=== PATIENT | female | born 1940 | race Caucasian/White ===

== ENCOUNTER 2016-05-05 01:54 | Inpatient (IN) | payer OTHER ==
[2016-05-05] MEDS ORDERED: Sodium Chloride 0.9% 1,000 ML PRIMARY IV ONE (02:16)
[2016-05-05] MEDS ORDERED: NORMAL SALINE 10 ML SYRINGE FLUSH IVP PRN ×2 (02:16→04:19)
[2016-05-05] MEDS ORDERED: DEXAMETHASONE PF 10 MG/1 ML VIAL IVP ONE (02:21)
[2016-05-05 02:44] LABS: BASOPHILS # (AUTO) 0.09 10*3/UL; BASOPHILS % (AUTO) 0.8 % (0-1); EOSINOPHILS % (AUTO) 2.5 % (0-8); HEMATOCRIT 33.1 % (37.0-47.0); HEMOGLOBIN 10.9 g/dL (12.0-16.0); IMM GRAN % (AUTO) 2.8 % (0-5); IMM GRAN# (AUTO) 0.32 10*3/UL; LYMPHOCYTES # (AUTO) 4.13 10*3/uL; LYMPHOCYTES % (AUTO) 36.4 % (10-50); MEAN CORPUSCULAR HEMOGLOBIN 32.1 PG (27-31); MEAN CORPUSCULAR HGB CONC 32.9 g/dL (33-37); MEAN PLATELET VOLUME 9.9 FL (7.4-12.2); MONOCYTES # (AUTO) 1.36 10*3/UL (0.3-0.8); NEUTROPHILS # (AUTO) 5.16 10*3/UL; NEUTROPHILS % (AUTO) 45.5 % (50-80); RDW COEFFICIENT OF VARIATION 13.6 % (11.5-14.5); WHITE BLOOD COUNT 11.34 10^3/uL (4.8-10.8)
[2016-05-05 02:46] LABS: PLATELET MORPHOLOGY COMMENT NORMAL MORPHOLOGY (NORM)
[2016-05-05 02:51] LABS: BILIRUBIN,TOTAL 0.6 mg/dL (0.3-1.2); BUN/CREATININE RATIO 36.25 (6-20); C-REACTIVE PROTEIN 0.6 mg/dL (0.0-0.9); CALCIUM 9.1 mg/dL (8.7-10.7); CREATININE 0.8 mg/dL (0.50-1.20); LACTATE 1.1 MMOL/L (0.70-2.10); POTASSIUM 4.5 meq/L (3.8-5.2); TOTAL PROTEIN 7.3 g/dL (6.1-8.0)
--- NOTE | 2016-05-05 03:10 | PDOC ---
Upper Respiratory HPI - General Chief Complaint: Respiratory Complaint Stated Complaint: WHEEZING, COUGH AND SORE THROAT X FEW DAYS Date Seen by Provider: 05/05/16 Time Seen by Provider: 01:55 Source: POSITIVE: Patient, EMS, [facility] records Exam Limitations: POSITIVE: No limitations Nurse's Notes Reviewed & Considered: Yes EMS Report Reviewed & Considered: Verbal - History of Present Illness Initial Comments: The patient is a 76-year-old female who presents to the emergency department with cough and increased shortness of breath as well as sore throat. She reports that over the past 2-3 days she has had a sore throat associated with cough. She states that all day today she has felt like there is something in her throat that she was unable to cough out. [facility] and received several nebulizer treatments. EMS was subsequently called because of her increased difficulty breathing. Oxygen saturations have remained 92% or greater on room air [facility] the [facility]. Just prior to EMS arriving there she coughed up a large hard mucous plug. She states after doing this her breathing feels better. She does continue to have sore throat. She states she has pain with swallowing and has a hoarse voice over the past 24 hours. She denies fevers or chills, chest pain , pain or swelling in her extremities or any other associated complaints. - Patient Home Medications Home Medications: Home Medications Blood Sugar Diagnostic [Freestyle Lite Strips] 1 each IN QID #100 strip Cholecalciferol (Vitamin D3) [Vitamin D3] 1 cap PO QD #90 cap 11/14/13 Folic Acid 5 tab ORAL QD #150 tab 10/26/14 Lancets [Bd Ultra-Fine] 1 each QHS #100 each 04/30/15 Losartan Potassium 1 tab ORAL QD #90 tab 04/30/15 [place], Insulin Disposable [Pen [place]] 1 each QD #100 unit 04/30/15 Propranolol HCl [Propranolol HCl ER] 1 cap PO QD #30 cap 06/05/15 Levothyroxine Sodium 1 tab PO DAILY #90 tab 08/14/15 Triamcinolone Acetonide 15 gm TP QID PRN #1 tube 08/27/15 Citalopram Hydrobromide [Celexa] 1 tab ORAL QD #30 tab 09/17/15 Lorazepam 1 mg PO BID #60 tab 11/28/15 Allopurinol 0.5 tab PO QD #45 tab 01/29/16 Insulin Glargine Inj [Lantus Inj] 60 unit SUBCUT QAM 03/28/16 Insulin Glargine SoloStar Inj [Lantus Solostar Inj] 55 unit SQ QPM #100 ml 03/28 Tramadol HCl 1 tab PO Q6H PRN #60 tab 03/28/16 Lorazepam 1 tab PO QHS tab 04/08/16 Polyethylene Glycol 400/Pva [Hypotears Eye Drops] 1 drp OP BID drp 04/16/16 Insulin Lispro [Humalog] 100 unit SUBCUT AC each 04/28/16 - Patient Allergies Allergies/Adverse Reactions: Allergies Allergy/AdvReac Type Severity Reaction Status Date / Time Penicillins Allergy Intermediate NAUSEA Verified 05/05/16 02:05 meperidine HCl [From Demerol] AdvReac Intermediate NAUSEA Verified 05/05/16 02: 05 nalbuphine HCl [From Nubain] AdvReac Mild NAUSEA Verified 05/05/16 02:05 CONTRAST DYE Allergy Intermediate NAUSEA Uncoded 05/05/16 02:05 Past Medical History - heen HEENT History: Cataracts, Dentures/Partials Additional HEENT History: BILAT CATARACT SURGERY 1 YEAR AGO Cardiovascular History: Hypertension, Hyperlipidemia Additional Cardiovasular History: HX OF CARDIAC STRESS TEST NEGATIVE Respiratory History: COPD, Shortness of Breath, Home Oxygen Use Additional Respiratory History: RESTRICTIVE LUNG DISEASE/ 2L O2 AT HS Gastrointestinal History: GERD, Hiatal Hernia Additional Gastrointestinal History: DIFFICULTY SWALLOWING FOOD Genitourinary History: Denies History Endocrine History: Type 2 Diabetes (insulin), Hypothyroidism Musculoskeletal History: Arthritis, Gout, Osteoarthritis Prosthesis or Implant: No Additional Musculoskeletal History: COMPRESSION FRACTURE Neurological History: Frequent Headaches Additional Neurological History: CHRONIC DIZZINESS; RECURRENT HEADACHE; head CTs in the past 2 yrs have twice revealed small vessel disease and 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 Blood Disorders: Other (please comment) Additional Blood Disorders History: B12 DEFICIENCY WITHOUT ANEMIA Psychiatric History: Anixety Disorders History of Sexually Transmitted Diseases: No Female Reproductive History: Denies History Obstetrical History: Denies History Cancer History: Denies History In Past Year Been Physically Harmed or Verbally Threatened: No History of MDRO: No History of Other Communicable Diseases: No Tobacco Use: Never Smoker Alcohol Use: None Substance Use Type: None Previous Surgical History: Yes Type / Date of Surgery: APPY/ BILAT OOPHORECTOMY/ BLADDER SX X 2/ B CATARACT EXT / COLONOSCOPY/ EGD/ HYST/ UMBILICAL HERNIA/EXP LAPAROTOMY WITH LYSIS OF ADHESIONS X 2/ D&C/ OVARIAN CYST EXC Anesthesia Reactions: Yes (OCCASIONAL PONV) Malignant Hyperthermia: No Significant Family History: Diabetes Additional Family History: both mother and father had DM Past Medical History Reviewed: Reviewed - No Changes ROS - Limitations ROS Limitations: No Limitations Constitution: DENIES: Chills, Fever Cardiovascular: DENIES: Chest Pain Respiratory: REPORTS: Cough Non Productive, Cough Productive, Shortness Of Breath Neurological: REPORTS: Denies Neuro Symptoms Gastrointestinal: REPORTS: Denies GI Symptoms Musculoskeletal: REPORTS: Denies MS Symptoms Eyes: REPORTS: Denies Symptoms ENT: REPORTS: Denies Symptoms Skin: DENIES: Rash Upper Respiratory/Fever Exam - General Appearance General Appearance: REPORTS: Alert, Cooperative, No Acute Distress - HEENT HEENT: POSITIVE: Head Inspection Nml, Eyes Inspection Nml, Ears Inspection Nml, Pharynx Inspect. Nml - Neck Neck: REPORTS: Normal Inspection, Other (No visible swelling and trachea is midline) - Respiratory Respiratory: REPORTS: No Respiratory Distress, Breath Sounds Normal, Speaks Full Sentences - Abdomen Abdomen: Soft: (All Quadrants), Denies Tenderness: (All Quadrants), No Distention: (All Quadrants) - Cardiovascular Cardiovascular: REPORTS: Regular Rate and Rhythm, Heart Sounds Normal - Skin Skin: REPORTS: Intact, No Rash - Extremities Extremity: Normal ROM: (All Extremities), Normal Inspection: (All Extremities) - Neurological / Psychological Neurological: POSITIVE: Oriented X3, Motor Normal, Sensation Normal Upper Resp/Fever Progress - Results Reviewed by me Xrays/CTs/US Reviewed by me: Yes Discussed with Radiologist: Yes Radiology Findings: Chest x-ray shows by Negra patchy infiltrates consistent with early pneumonia per radiologist. CT soft tissue neck without IV contrast revealed no obvious abnormal swelling or fluid accumulation/abscess per radiologist. She did have some inflammation in the sinuses. Lab Results Reviewed: Yes Lab Results:: Laboratory Results 05/05/16 Range/Units 02:36 WBC 11.34 H (4.8-10.8) 10^3/uL RBC 3.40 L (4.20-5.40) 10^6/uL Hgb 10.9 L (12.0-16.0) g/dL Hct 33.1 L (37.0-47.0) % MCV 97.4 (81-99) FL MCH 32.1 H (27-31) PG MCHC 32.9 L (33-37) g/dL RDW Std Deviation 46.6 (39-50) fL RDW Coeff of Ryan 13.6 (11.5-14.5) % Plt Count 396 H (140-350) 10*3/uL MPV 9.9 (7.4-12.2) FL Immature Gran % (Auto) 2.8 (0-5) % Neut % (Auto) 45.5 L (50-80) % Lymph % (Auto) 36.4 (10-50) % [place] % (Auto) 12.0 (5-15) % Eos % (Auto) 2.5 (0-8) % Baso % (Auto) 0.8 (0-1) % Immature Gran # (Auto) 0.32 10*3/UL Neut # (Auto) 5.16 10*3/UL Lymph # (Auto) 4.13 10*3/uL [place] # (Auto) 1.36 H (0.3-0.8) 10*3/UL Eos # (Auto) 0.28 10*3/UL Baso # (Auto) 0.09 10*3/UL WBC Morphology Comment Normal morphology (NORM) Plt Morphology Comment Normal morphology (NORM) RBC Morph Comment Normal morphology (NORM) Sodium 134 L (135-145) meq/L Potassium 4.5 (3.8-5.2) meq/L Chloride 99 (98-112) meq/L Carbon Dioxide 25 (23-33) meq/L Anion Gap 10 (5-20) BUN 29 H (7-22) mg/dL Creatinine 0.8 (0.50-1.20) mg/dL Estimated GFR (>60 ml/min/1.73m(2)) BUN/Creatinine Ratio 36.25 H (6-20) Glucose 120 H (78-110) mg/dL Calculated Osmolality 284.0 (267-292) mOsm/kg Lactic Acid 1.1 (0.70-2.10) MMOL/L Calcium 9.1 (8.7-10.7) mg/dL Total Bilirubin 0.6 (0.3-1.2) mg/dL AST 24 (8-39) IU/L ALT 32 (9-52) IU/L Alkaline Phosphatase 90 (38-126) IU/L C-Reactive Protein 0.6 (0.0-0.9) mg/dL Total Protein 7.3 (6.1-8.0) g/dL Albumin 3.7 (3.5-4.8) g/dL Globulin 3.5 (2.50-4.10) g/dL Albumin/Globulin Ratio 1.00 L (1.3-2.0) mg/g - Patient's Progress MDM / ED Course: Blood cultures and lactate were drawn with IV start. The patient did receive Decadron [address] soft tissue neck and chest x-ray were obtained. The patient's oxygen saturations did drop into the low 80s and she was placed on oxygen per nasal cannula. The CT soft tissue neck did not reveal any evidence of soft tissue swelling or abscess. Chest x-ray shows early infiltrates consistent with early pneumonia. Swabs were sent for influenza. Blood work reveals mildly elevated white blood cell count. Lactate levels were normal. The patient is discussed with Dr. Arias. He is agreed to admit the patient for treatment of pneumonia. She will be started on Zosyn. Findings were discussed with the patient and her daughter and they are in agreement with the current plan. - Consult Counseled: POSITIVE: Patient, Family, RE: Lab Results, RE: Radiology Results, RE : DX, RE: Need for F/U Patient Care Time - Estimated PCT Patient Care Time (In Minutes): 30 Vital Signs - Recent Vital Signs Vital Signs: Vital Signs (Last 8 hours) Temp Pulse Resp BP Pulse Ox 05/05/16 01:54 98.2 F 77 22 154/83 95 - VS Reviewed Vital Signs Reviewed: Yes Discharge Clinical Impression: Pneumonia, Laryngitis Discharge Disposition: Admit to Inpatient Condition: Fair Date Decision to Admit to Inpatient: 05/05/16 Time Decision to Admit to Inpatient: 03:30
--- NOTE | 2016-05-05 03:12 | DI ---
HISTORY: Patient states she has had a cold x2 weeks with difficulty breathing and swallowing x2 days . TECHNIQUE: Contiguous axial images of the neck were obtained and submitted for interpretation. FINDINGS: Mucosal surfaces are smooth and symmetric. There is no formed fluid collection to suggest abscess formation, though evaluation is significantly limited in the absence of intravenous contrast. No cervical lymphadenopathy. There is mucosal thickening and frothy secretions in the bilateral maxillary sinuses. Mucosal thicken ing of the ethmoid air cells is also noted. The mastoid air cells are clear. Captured intracranial contents are notable for age related senescent changes without acute intracrani al pathology. There are postsurgical changes of the bilateral globes. Imaged portions of the orbits and facial soft tissues are otherwise unremarkable. The lung apices are clear. There is a calcified mediastinal lymph node. The thyroid gland exhibits normal CT morphology. Vascular structures are intact. Atheromatous calcifications are noted in the left carotid bulb. Osseous structures are notable for degenerative changes of the spine without acute osseous abnormalit y. There is multilevel degenerative disc disease with prominent posterior endplate osteophytes result ing in osseous central canal narrowing at the C4/5 level. IMPRESSION: 1. No CT evidence of acute neck pathology within the limits of this exam. 2. Acute on chronic sinus disease. 3. Age related intracranial senescent changes without CT evidence of acute pathology.
--- NOTE | 2016-05-05 03:16 | DI ---
HISTORY: Patient states she has had a cold x2 weeks with difficulty swallowing and breathing x2 days . TECHNIQUE: PA and lateral views of the chest are submitted. Patchy bibasilar and left retrocardiac opacities may. There is no pleural effusion or pneumothorax. The cardiomediastinal silhouette is within normal limits with atheromatous calcifications in the arch of the tortuous aorta. Degenerative changes of the right AC joint and spine are noted. Surgical clips project over the righ t upper quadrant. IMPRESSION: 1. Patchy bibasilar and left retrocardiac atelectasis versus early consolidation. Follow-up to reso lution is recommended.
[2016-05-05] MEDS ORDERED: Piperacillin/Tazobactam Inj 3.375 GM in Sodium Chloride 0.9% 100 ML IV ONE (03:29)
[2016-05-05] MEDS ORDERED: Insulin Lispro Flexpen 300 UNIT/3 ML INSULN.PEN SUBCUT ONE (04:19)
[2016-05-05] MEDS ORDERED: ONDANSETRON 4 MG/2 ML VIAL IVP PRN (04:19)
[2016-05-05] MEDS ORDERED: Levofloxacin 750mg (Premix) 750 MG in Dextrose 1 BAG IV SCH (05:00)
[2016-05-05] MEDS: Levofloxacin 750mg (Premix) 750 MG in Dextrose 1 BAG IV SCH (05:38)
[2016-05-05] MEDS: LEVOTHYROXINE 125 MCG TABLET PO SCH (06:20)
[2016-05-05] MEDS: ACETAMINOPHEN 325 MG TABLET PO PRN ×3 (07:25→21:00)
[2016-05-05] MEDS: Insulin Lispro Flexpen 300 UNIT/3 ML INSULN.PEN SUBCUT SCH ×3 (07:26→16:00)
[2016-05-05] MEDS: FOLIC ACID 1 MG TABLET PO SCH (08:20)
[2016-05-05] MEDS: PROPRANOLOL ER 60 MG CAPSULE PO SCH (08:20)
[2016-05-05] MEDS: ALLOPURINOL 300 MG TABLET PO SCH (08:20)
[2016-05-05] MEDS: LOSARTAN 50 MG TABLET PO SCH (08:20)
[2016-05-05] MEDS ORDERED: Piperacillin/Tazobactam Inj 3.375 GM in Sodium Chloride 0.9% 100 ML IV SCH (10:00)
[2016-05-05] MEDS ORDERED: Sodium Chloride 0.9% 100 ML IV ONE (10:10)
[2016-05-05] MEDS: Insulin Glargine SoloStar Inj 100 UNIT/ML INSULN.PEN SUBCUT SCH (11:19)
[2016-05-05] MEDS ORDERED: traMADol 50 MG TABLET PO PRN (12:52)
[2016-05-05] MEDS ORDERED: LORazepam 1 MG TABLET PO SCH (13:00)
[2016-05-05] MEDS ORDERED: INSULIN GLARGINE 60 UNIT SUBCUT SCH (13:00)
[2016-05-05] MEDS: LORazepam 1 MG TABLET PO SCH ×2 (13:04→21:00)
--- NOTE | 2016-05-05 18:58 | PDOC ---
History and Physical - History of Present Illness Date and Time of Service: 05/05/2015, 1850 Chief Complaint: Patient seen and evaluated earlier today. Cough is the patient 's chief complaint. History of Present Illness: This is a very pleasant 76-year-old female who resides at [facility]. She states that about a week ago or so she developed some cold symptoms. She was on some cough syrup but over the last couple days has had a more productive cough and apparently coughed up a large amount of phlegm last night and early in the morning. She is not had any fever or chills, she did get the flu shot and the pneumonia vaccine this year. She states that she lost her voice about 2 days ago. The productive portion of the cough is been much more severe the last 2 days. She was sent over for evaluation and it appears that she may have a lingular infiltrate. She was placed on Rocephin and Zosyn and was admitted. She is requiring some oxygen here in the hospital and normally is on room air. Overall she does feel better with antibiotics and oxygen therapy. Past Medical History Medical History: 1. Hyperlipidemia. 2. hypertension, she had a stress test and that's done in the past which was negative. 3. Restrictive lung disease but apparently not on any oxygen any longer. Was on 2 L of oxygen prior to going in to [facility]. 4. GERD. 5. hypothyroidism. 6. Arthritis. 7.gout. 8. history of compression fracture,. 9. chronic dizziness recurrent headaches, head CTs in the last 2 years revealed small vessel disease. 10. B12 deficiency. 11. Diabetes mellitus, insulin-dependent Surgical History: 1) Appendectomy. 2) bladder suspension x2. 3) bilateral cataract extraction. 4) colonoscopy. 5) EGD with dilation. 6) vaginal hysterectomy with bilateral salpingo-oophorectomy. 7) umbilical hernia repair. 8) exploratory laparotomy with lysis of adhesions x2 (1 when quite young). 9 ) D&C. 10) ovarian cyst excision for torsion. 11) lipoma excision recently. Pertinent Family History: Family history significant for diabetes both mother and father had diabetes Past Social History: Does not smoke or drink. Resides currently at [facility]. Tobacco Use: Never Smoker Substance Use Type: None Medication / Allergies Home Medications: Home Medications Medication Instructions Recorded Confirmed Type Blood Sugar Diagnostic [Freestyle 1 each IN QID #100 strip 10/06/13 05/05/16 Clinic Lite Strips] Cholecalciferol (Vitamin D3) 1 cap PO QD #90 cap 11/14/13 05/05/16 Clinic [Vitamin D3] Folic Acid 5 tab ORAL QD #150 tab 10/26/14 05/05/16 Clinic Lancets [Bd Ultra-Fine] 1 each MC QHS #100 each 04/30/15 05/05/16 Clinic Losartan Potassium 1 tab ORAL QD #90 tab 04/30/15 05/05/16 Clinic [place], Insulin Disposable [Pen 1 each QD #100 unit 04/30/15 05/05/16 [facility] [place]] Propranolol HCl [Propranolol HCl 1 cap PO QD #30 cap 06/05/15 05/05/16 Clinic ER] Levothyroxine Sodium 1 tab PO DAILY #90 tab 08/14/15 05/05/16 Clinic Triamcinolone Acetonide 15 gm TP QID PRN #1 tube 08/27/15 05/05/16 Clinic Citalopram Hydrobromide [Celexa] 1 tab ORAL QD #30 tab 09/17/15 05/05/16 Clinic Lorazepam 1 mg PO BID #60 tab 11/28/15 05/05/16 Clinic Allopurinol 0.5 tab PO QD #45 tab 01/29/16 05/05/16 Clinic Insulin Glargine Inj [Lantus Inj] 60 unit SUBCUT QAM 03/28/16 05/05/16 History Insulin Glargine SoloStar Inj 55 unit SQ QPM #100 ml 03/28/16 05/05/16 Clinic [Lantus Solostar Inj] Tramadol HCl 1 tab PO Q6H PRN #60 tab 03/28/16 05/05/16 Clinic Lorazepam 1 tab PO QHS tab 04/08/16 05/05/16 History Polyethylene Glycol 400/Pva 1 drp OP BID drp 04/16/16 05/05/16 History [Hypotears Eye Drops] Insulin Lispro [Humalog] 100 unit SUBCUT AC each 04/28/16 05/05/16 History Allergies/Adverse Reactions: Allergies Allergy/AdvReac Type Severity Reaction Status Date / Time Penicillins Allergy Intermediate NAUSEA Verified 05/05/16 09:35 meperidine HCl [From Demerol] AdvReac Intermediate NAUSEA Verified 05/05/16 09: 35 nalbuphine HCl [From Nubain] AdvReac Mild NAUSEA Verified 05/05/16 09:35 CONTRAST DYE Allergy Intermediate NAUSEA Uncoded 05/05/16 09:35 Review of Systems - Review of Systems All Systems: Reviewed & No Additional Complaints Except as Stated (I did a 12 point review systems and it was negative other than that noted below.) - Musculoskeletal Musculoskeletal: REPORTS: Joint Pain - Shoulders (Particularly the left shoulder ) - Neurological Neurologic: REPORTS: Headache (Chronic in nature) Exam - Vitals Vital Signs: Vital Signs Temperature 97.9 F Temperature Source Temporal Artery Scan Pulse Rate [Apical] 75 Pulse Rate [Pulse Oximeter] 82 Pulse Rate 73 Respiratory Rate 24 Blood Pressure [Right Arm] 164/65 Blood Pressure 156/71 Pulse Ox 93 Oxygen Flow Rate 1 Oxygen Delivery Method Nasal Cannula Height 4 ft 10 in Weight 134 lb 12.8 oz - General General Appearance: POSITIVE: No Acute Distress, Cooperative - Head Head Exam: POSITIVE: Normal Inspection, Normocephalic, Atraumatic - Eye Eye Exam: POSITIVE: No Scleral Icterus - ENT ENT Exam: POSITIVE: Mucous Membranes Moist - Neck Neck Exam: POSITIVE: Normal Inspection, No Tenderness, No Thyromegaly - Respiratory Respiratory Exam: POSITIVE: Breathing Non Labored, Normal to Percussion and Palpation, Decreased Breath Sounds (In the bases, right side greater than left.) - Cardiovascular Cardiovascular Exam: POSITIVE: RRR, No Murmur, No Clicks, No Gallops, No Rubs, No JVD - GI/Abdominal GI/Abdominal Exam: POSITIVE: Normal Bowel Sounds, Non Tender, Non Distended, Soft - Rectal Rectal Exam: POSITIVE: Deferred - External Exam: POSITIVE: Deferred Exam: POSITIVE: Deferred - Extremities Extremities Exam: POSITIVE: No Clubbing Present, No Edema Present, No Cyanosis Present - Back Back Exam: POSITIVE: No CVA Tenderness - Neurological Neurological Exam: POSITIVE: Alert, Oriented x 3, No Facial Droop, Speech Intact / Clear, Moves All Extremities Equally - Psychiatric Psychiatric Exam: POSITIVE: Normal Affect, Normal Mood - Integumentary Integumentary Exam: POSITIVE: Normal Color, Warm, Dry, Intact - Central Line Examination Central Line Present on Admission: No Results - Labs CBC and BMP: 05/05/16 02:36 05/05/16 02:36 Labs - Last 24 Hours: Laboratory Results 05/05/16 Range/Units 02:36 WBC 11.34 H (4.8-10.8) 10^3/uL RBC 3.40 L (4.20-5.40) 10^6/uL Hgb 10.9 L (12.0-16.0) g/dL Hct 33.1 L (37.0-47.0) % MCV 97.4 (81-99) FL MCH 32.1 H (27-31) PG MCHC 32.9 L (33-37) g/dL RDW Std Deviation 46.6 (39-50) fL RDW Coeff of Ryan 13.6 (11.5-14.5) % Plt Count 396 H (140-350) 10*3/uL MPV 9.9 (7.4-12.2) FL Immature Gran % (Auto) 2.8 (0-5) % Neut % (Auto) 45.5 L (50-80) % Lymph % (Auto) 36.4 (10-50) % [place] % (Auto) 12.0 (5-15) % Eos % (Auto) 2.5 (0-8) % Baso % (Auto) 0.8 (0-1) % Immature Gran # (Auto) 0.32 10*3/UL Neut # (Auto) 5.16 10*3/UL Lymph # (Auto) 4.13 10*3/uL [place] # (Auto) 1.36 H (0.3-0.8) 10*3/UL Eos # (Auto) 0.28 10*3/UL Baso # (Auto) 0.09 10*3/UL WBC Morphology Comment Normal morphology (NORM) Plt Morphology Comment Normal morphology (NORM) RBC Morph Comment Normal morphology (NORM) Sodium 134 L (135-145) meq/L Potassium 4.5 (3.8-5.2) meq/L Chloride 99 (98-112) meq/L Carbon Dioxide 25 (23-33) meq/L Anion Gap 10 (5-20) BUN 29 H (7-22) mg/dL Creatinine 0.8 (0.50-1.20) mg/dL Estimated GFR (>60 ml/min/1.73m(2)) BUN/Creatinine Ratio 36.25 H (6-20) Glucose 120 H (78-110) mg/dL Calculated Osmolality 284.0 (267-292) mOsm/kg Lactic Acid 1.1 (0.70-2.10) MMOL/L Calcium 9.1 (8.7-10.7) mg/dL Total Bilirubin 0.6 (0.3-1.2) mg/dL AST 24 (8-39) IU/L ALT 32 (9-52) IU/L Alkaline Phosphatase 90 (38-126) IU/L C-Reactive Protein 0.6 (0.0-0.9) mg/dL Total Protein 7.3 (6.1-8.0) g/dL Albumin 3.7 (3.5-4.8) g/dL Globulin 3.5 (2.50-4.10) g/dL Albumin/Globulin Ratio 1.00 L (1.3-2.0) mg/g - Imaging Status: Image Reviewed by Me (On my view, I think the patient has some haziness on the right. Could be consistent with an early right-sided pneumonia.) Assessment and Plan - Patient Problems (1) Community acquired pneumonia Current Visit: Yes Status: Acute (2) Restrictive lung disease Current Visit: Yes Status: Acute (3) Poorly controlled diabetes mellitus Current Visit: Yes Status: Acute (4) GERD (gastroesophageal reflux disease) Current Visit: Yes Status: Chronic Qualifiers: Esophagitis presence: without esophagitis Qualified Description: Gastroesophageal reflux disease without esophagitis Qualifier Code(s): ( K21.9) Gastro-esophageal reflux disease without esophagitis (5) Hypertension Current Visit: Yes Status: Chronic Qualifiers: Hypertension type: essential hypertension Qualified Description: Essential hypertension Qualifier Code(s): (I10) Essential (primary) hypertension (6) Hypothyroidism Current Visit: Yes Status: Chronic Qualifiers: Hypothyroidism type: unspecified Qualified Description: Hypothyroidism , unspecified type Qualifier Code(s): (E03.9) Hypothyroidism, unspecified - Assessment / Plan Additional Assessment/Plan Details: Admit the patient. Breathing therapies/antibiotics/oxygen as indicated. Continue insulin therapy with insulin correction dose scales as well with lispro. Continue home medications from [facility]. PT and OT. DO NOT RESUSCITATE/DO NOT INTUBATE. I spoke with the patient regarding the plan above and she felt this would be a good plan for her.
[2016-05-05] MEDS ORDERED: ALBUTEROL SULFATE 2.5 MG/3 ML NEB PRN (19:06)
[2016-05-05] MEDS: Hypromellose/Glycerin/PEG 400 Ophth Soln 15 ML DROPS EACH EYE SCH (20:59)
[2016-05-05] MEDS ORDERED: Insulin Glargine SoloStar Inj 100 UNIT/ML INSULN.PEN SUBCUT SCH (21:00)
[2016-05-06] MEDS: LEVOTHYROXINE 125 MCG TABLET PO SCH (05:32)
[2016-05-06 05:55] LABS: BASOPHILS # (AUTO) 0.04 10*3/UL; BASOPHILS % (AUTO) 0.3 % (0-1); EOSINOPHILS % (AUTO) 0.5 % (0-8); HEMATOCRIT 30.8 % (37.0-47.0); HEMOGLOBIN 10.3 g/dL (12.0-16.0); IMM GRAN % (AUTO) 1.4 % (0-5); IMM GRAN# (AUTO) 0.17 10*3/UL; LYMPHOCYTES # (AUTO) 3.49 10*3/uL; LYMPHOCYTES % (AUTO) 29.3 % (10-50); MEAN CORPUSCULAR HEMOGLOBIN 31.9 PG (27-31); MEAN CORPUSCULAR HGB CONC 33.4 g/dL (33-37); MEAN PLATELET VOLUME 10.1 FL (7.4-12.2); MONOCYTES # (AUTO) 1.56 10*3/UL (0.3-0.8); MONOCYTES % (AUTO) 13.1 % (5-15); NEUTROPHILS % (AUTO) 55.4 % (50-80); RDW COEFFICIENT OF VARIATION 13.3 % (11.5-14.5); RED BLOOD COUNT 3.23 10^6/uL (4.20-5.40); WHITE BLOOD COUNT 11.92 10^3/uL (4.8-10.8)
[2016-05-06 05:58] LABS: PLATELET MORPHOLOGY COMMENT NORMAL MORPHOLOGY (NORM)
[2016-05-06 06:05] LABS: BUN/CREATININE RATIO 37.14 (6-20); CALCIUM 9.4 mg/dL (8.7-10.7); CREATININE 0.7 mg/dL (0.50-1.20); POTASSIUM 3.8 meq/L (3.8-5.2)
[2016-05-06] MEDS ORDERED: Insulin Glargine SoloStar Inj 100 UNIT/ML INSULN.PEN SUBCUT SCH ×2 (07:00→12:37)
[2016-05-06] MEDS: Insulin Lispro Flexpen 300 UNIT/3 ML INSULN.PEN SUBCUT SCH ×3 (07:11→16:25)
[2016-05-06] MEDS: PROPRANOLOL ER 60 MG CAPSULE PO SCH (08:37)
[2016-05-06] MEDS: Hypromellose/Glycerin/PEG 400 Ophth Soln 15 ML DROPS EACH EYE SCH ×2 (08:37→20:53)
[2016-05-06] MEDS: LORazepam 1 MG TABLET PO SCH ×2 (08:37→20:53)
[2016-05-06] MEDS: LOSARTAN 50 MG TABLET PO SCH (08:37)
[2016-05-06] MEDS: FOLIC ACID 1 MG TABLET PO SCH (08:37)
[2016-05-06] MEDS: CITALOPRAM 20 MG TABLET PO SCH (08:38)
[2016-05-06] MEDS: ALLOPURINOL 300 MG TABLET PO SCH (08:38)
[2016-05-06] MEDS: Insulin Glargine SoloStar Inj 100 UNIT/ML INSULN.PEN SUBCUT SCH ×2 (09:20→09:34)
--- NOTE | 2016-05-06 12:37 | PDOC(PROG) ---
Date and Time of Service: 05/06/2015, 1235 Interval History: Feeling much better. Voice is starting to come back. Cough is better. No nausea or vomiting and no fever. The patient states that she's been getting low blood [facility] in the morning at the [facility] as well. Objective : Data - Labs CBC and BMP: 05/06/16 05:38 05/06/16 05:38 Labs - Last 24 Hours: Laboratory Results 05/06/16 Range/Units 05:38 WBC 11.92 H (4.8-10.8) 10^3/uL RBC 3.23 L (4.20-5.40) 10^6/uL Hgb 10.3 L (12.0-16.0) g/dL Hct 30.8 L (37.0-47.0) % MCV 95.4 (81-99) FL MCH 31.9 H (27-31) PG MCHC 33.4 (33-37) g/dL RDW Std Deviation 44.4 (39-50) fL RDW Coeff of Ryan 13.3 (11.5-14.5) % Plt Count 391 H (140-350) 10*3/uL MPV 10.1 (7.4-12.2) FL Immature Gran % (Auto) 1.4 (0-5) % Neut % (Auto) 55.4 (50-80) % Lymph % (Auto) 29.3 (10-50) % Dale % (Auto) 13.1 (5-15) % Eos % (Auto) 0.5 (0-8) % Baso % (Auto) 0.3 (0-1) % Immature Gran # (Auto) 0.17 10*3/UL Neut # (Auto) 6.60 10*3/UL Lymph # (Auto) 3.49 10*3/uL Dale # (Auto) 1.56 H (0.3-0.8) 10*3/UL Eos # (Auto) 0.06 10*3/UL Baso # (Auto) 0.04 10*3/UL WBC Morphology Comment Normal morphology (NORM) Plt Morphology Comment Normal morphology (NORM) RBC Morph Comment Normal morphology (NORM) Sodium 136 (135-145) meq/L Potassium 3.8 (3.8-5.2) meq/L Chloride 101 (98-112) meq/L Carbon Dioxide 25 (23-33) meq/L Anion Gap 10 (5-20) BUN 26 H (7-22) mg/dL Creatinine 0.7 (0.50-1.20) mg/dL Estimated GFR (>60 ml/min/1.73m(2)) BUN/Creatinine Ratio 37.14 H (6-20) Glucose 64 L (78-110) mg/dL Calculated Osmolality 284.0 (267-292) mOsm/kg Calcium 9.4 (8.7-10.7) mg/dL Objective : Exam - General General Appearance: No Acute Distress, Cooperative Additional General Exam Details: Vital Signs - Last Taken Temperature 97.8 F 05/06/16 11:03 Pulse Rate 76 05/06/16 11:03 Respiratory Rate 19 05/06/16 11:03 Blood Pressure 129/52 05/06/16 11:03 Pulse Ox 99 05/06/16 11:03 - Eye Eye Exam: No Scleral Icterus - Respiratory Respiratory Exam: Clear to Auscultation - Bilaterally, Breathing Non Labored ( Improved in the lower bases) - Cardiovascular Cardiovascular Exam: RRR, No Murmur, No Clicks, No Gallops, No Rubs, No JVD - GI/Abdominal GI/Abdominal Exam: Normal Bowel Sounds, Non Tender, Non Distended, Soft - Extremities Extremities Exam: No Clubbing Present, No Edema Present, No Cyanosis Present - Neurological Neurological Exam: Alert, Oriented x 3, No Facial Droop, Speech Intact / Clear, Moves All Extremities Equally Assessment and Plan - Patient Problems (1) Community acquired pneumonia Current Visit: Yes Status: Acute (2) Restrictive lung disease Current Visit: Yes Status: Acute (3) Poorly controlled diabetes mellitus Current Visit: Yes Status: Acute (4) GERD (gastroesophageal reflux disease) Current Visit: Yes Status: Chronic Qualifiers: Esophagitis presence: without esophagitis Qualified Description: Gastroesophageal reflux disease without esophagitis Qualifier Code(s): ( K21.9) Gastro-esophageal reflux disease without esophagitis (5) Hypertension Current Visit: Yes Status: Chronic Qualifiers: Hypertension type: essential hypertension Qualified Description: Essential hypertension Qualifier Code(s): (I10) Essential (primary) hypertension (6) Hypothyroidism Current Visit: Yes Status: Chronic Qualifiers: Hypothyroidism type: unspecified Qualified Description: Hypothyroidism , unspecified type Qualifier Code(s): (E03.9) Hypothyroidism, unspecified - Assessment / Plan Additional Assessment/Plan Details: On day 2 of Rocephin IV. Continue antibiotics for a total of 7 days. This is a class III pneumonia, 78 points by pneumonia severity index. I think in the next 48 hours or so we should be able to convert to a by mouth antibiotic to finish course. Continue PT and OT. Lower the dose of Lantus at nighttime.
--- NOTE | 2016-05-06 14:29 | OTI REPORT ---
Thank you for the referral of Rosanna Cooper. She was seen on 05/06/16 for an occupational therapy inpatient evaluation secondary to pneumonia. SUBJECTIVE: The patient is a 76-year-old female who is being seen today for an evaluation secondary to pneumonia. The patient is a resident at the [facility]. She reports that she was living on her own prior to going to the [facility] approximately a month ago. She reports that she really enjoys living there; her medicines and her Diabetes are better controlled. She states she has had this cough for quite some time. Per her physician's report, it is a community based pneumonia. PAST MEDICAL HISTORY: Past medical history can be found in the patient's medical record. OBJECTIVE FINDINGS: Mobility: The patient was able to sit in chair and transfer to sitting edge of chair independently. Transfers: The patient is able to transfer from sit to stand with stand by assist. Range of motion: Once standing, the patient had 120 degrees of shoulder flexion , 110 degrees of shoulder abduction. Strength: Strength throughout her upper extremities is 4/5 grossly in her shoulders, elbows, and wrists. Activities of daily living: The patient was able to sit and don and doff lower extremity clothing such as her socks and pants. Pain: The patient states she is just having some chest pain from the pneumonia. Oxygen: The patient is currently on one liter of oxygen; typically she is not on oxygen. ASSESSMENT: At this time the patient would benefit from skilled occupational therapy to address energy conservation, improving overall strength, and to work on dynamic functional transfers. Short-Term Goals: To be met by discharge from inpatient: Patient will learn three energy conservation techniques and be able to apply them. Patient will improve upper extremity strength to 4+/5 to improve her activity tolerance. Patient will be able to complete 15 minutes of functional activity and keep her oxygen saturation above 90% with or without oxygen. Long-Term Goals: To be met following discharge from inpatient: Patient will return back to the [facility] once medically stable. TREATMENT PLAN: Patient will be seen B.I.D during the week and one time per day over the weekend as an inpatient to address the above goals and objectives. INITIAL TREATMENT: Treatment today consisted of the initial evaluation followed by lower extremity dressing activities. The patient participated in 15 minutes of functional movement activities and her oxygen saturation did decline to 85% with one liter of oxygen. She was instructed in pursed lipped breathing which increased her oxygen levels to 92%. KELVIN
--- NOTE | 2016-05-06 15:10 | PTI REPORT ---
Thank you for the referral of Rosanna Cooper. She was seen on 05/06/16 for an inpatient evaluation secondary to pneumonia and weakness. SUBJECTIVE: The patient is a 76-year-old female who presented to the hospital secondary to pneumonia. The patient states she has had pneumonia twice this past year. The patient is a resident at the [facility] as of a little over a month ago. She was in the hospital at the end of February due to high blood sugars. Over at [facility] when we were seeing her for therapy she was rehabbing to go home, but she states that this time around she will just stay at the [facility] as she doesn't feel that it is appropriate for her to return home. The patient states that she is on oxygen currently at the hospital due to the fact that she has been having some difficulty breathing secondary to her pneumonia. She states that she was only on oxygen at home at night previously and has not been on any while at the [facility] as her oxygen saturation has been doing very well. The patient has been participating in physical and occupational therapy over at the [facility] prior to this admittance into the hospital. PAST MEDICAL HISTORY: Past medical history can be found in the patient's medical record. OBJECTIVE FINDINGS: General observations: The patient is alert and oriented to setting upon PT arrival. The patient was sitting up in chair. Pain: The patient denied having any pain at this time, just difficulty with breathing and general fatigue as she did have a shower prior to her therapy evaluation. Oxygen: The patient was on one liter of oxygen. Strength: The patient demonstrates 3+/5 bilateral lower extremity strength. Transfers: The patient was able to move from a seated to standing position with stand by assist x1 for safety as the patient does tend to have difficulties with safety awareness and is very quick with her transitions. The patient was able to perform a standing to seated transfer with stand by assist x1 for safety. Balance: The patient demonstrates fair static standing balance. The patient required hand hold assist x2 to perform dynamic balance assessment with standing marching. With hand hold assist of two the patient demonstrated fair dynamic standing balance but she did fatigue very easily and was only able to complete the activity for approximately 20 seconds before requiring a rest break. The patient did require max verbal cueing for propre breathing during her rest break. Ambulation: The patient was able to ambulate with a standard walker and contact guard assist x1 for safety x150 feet. The patient did have a more difficult time with the standard walker as she does get very quick with it an d has some poor safety awareness with the standard walker. She is used to having a four wheeled walker at the [facility] which is what she will go back to using once she returns there. Once the patient was seated, her oxygen saturation was checked and she was at 85% on her one liter of oxygen. She did require max verbal cueing for proper breathing. It took approximately two minutes to bring her oxygen saturation back up to 95%. ASSESSMENT: The patient has good rehab potential. Problem List: Decreased endurance and activity tolerance Decreased safety awareness Short-Term Goals: To be met by discharge from inpatient: Patient will transfer from bed to stand independently and safely. Patient will be able to ambulate at least 150 feet safely with no more than stand by assist x1 and maintaining oxygen saturation at 90% or better on one liter of oxygen. Long-Term Goals: To be met following discharge from inpatient: Patient will return back to the [facility] and physical and occupational therapy will be resumed in order to improve her endurance, strength , and safety awareness. TREATMENT PLAN: Patient will be seen B.I.D during the week and one time per day over the weekend as an inpatient for working on safety awareness with her transfers and ambulation, monitoring oxygen saturation with ambulation and exercise, and general strengthening. INITIAL TREATMENT: Treatment today consisted of the initial evaluation followed by one unit of functional activity consisting of transfers and ambulation x150 feet with standard walker. KELVIN
--- NOTE | 2016-05-06 16:19 | OT.PROG ---
Progress Note Progress Note: S: pt was sidelying in bed and woke up on own and stated that she did not want to go down to therapy but would participate in room. O: pt was seen in her room and after PT finished up we worked on toilet transfer and did complete transfer Ind and toileting with mod ind. She did request nursing to assist with donning of LE garments. pt completed transfer out to chair Ind and needed no assistance with chair mobility. A: Pt would continue to benefit from therapy to increase activity tolerance and strength. P: continue per plan of care.
--- NOTE | 2016-05-06 16:33 | PT.PROG ---
Progress Note Progress Note: S. Patient stated that she didn't want to go to the therapy gym however agreed to do therapy. O. Patient ambulated 150 feet around the nurses station she was left with OT for further therapy. A. Patient tolerated ambulation well, she requires CGA and struggles with her balance when she is turning corners. Patient continues to be weak and would benefit from continued therapy at this time. P. Continue POC.
[2016-05-06] MEDS: ACETAMINOPHEN 325 MG TABLET PO PRN (20:00)
[2016-05-07] MEDS: Levofloxacin 750mg (Premix) 750 MG in Dextrose 1 BAG IV SCH (04:45)
[2016-05-07] MEDS: LEVOTHYROXINE 125 MCG TABLET PO SCH (05:42)
[2016-05-07 06:00] LABS: MEAN PLATELET VOLUME 9.9 FL (7.4-12.2)
[2016-05-07 06:02] LABS: HEMATOCRIT 34.7 % (37.0-47.0); MEAN CORPUSCULAR HEMOGLOBIN 33.4 PG (27-31); MEAN CORPUSCULAR HGB CONC 34.6 g/dL (33-37); RDW COEFFICIENT OF VARIATION 13.4 % (11.5-14.5); RED BLOOD COUNT 3.59 10^6/uL (4.20-5.40); WHITE BLOOD COUNT 10.96 10^3/uL (4.8-10.8)
[2016-05-07 06:09] LABS: HEMOGLOBIN A1C 10.78 % (4.2-6.0); MEAN BLOOD GLUCOSE (CALC) 272.974 mg/dL
[2016-05-07 06:14] LABS: BUN/CREATININE RATIO 37.5 (6-20); CALCIUM 9.5 mg/dL (8.7-10.7); CREATININE 0.8 mg/dL (0.50-1.20); POTASSIUM 4.8 meq/L (3.8-5.2)
[2016-05-07 06:15] LABS: BAND NEUTROPHILS % 1 % (0-10); BASOPHILS % (MANUAL) 1 % (0-1); EOSINOPHILS % (MANUAL) 0 % (0-8); LYMPHOCYTES % (MANUAL) 38 % (10-50); MONOCYTES % (MANUAL) 4 % (0-12); NEUTROPHILS % (MANUAL) 56 % (50-80); PLATELET MORPHOLOGY COMMENT NORMAL MORPHOLOGY (NORM)
[2016-05-07] MEDS: Insulin Lispro Flexpen 300 UNIT/3 ML INSULN.PEN SUBCUT SCH ×3 (06:43→16:27)
[2016-05-07] MEDS: Insulin Glargine SoloStar Inj 100 UNIT/ML INSULN.PEN SUBCUT SCH (06:43)
[2016-05-07] MEDS: LORazepam 1 MG TABLET PO SCH ×2 (08:44→21:10)
[2016-05-07] MEDS: LOSARTAN 50 MG TABLET PO SCH (08:44)
[2016-05-07] MEDS: FOLIC ACID 1 MG TABLET PO SCH (08:44)
[2016-05-07] MEDS: CITALOPRAM 20 MG TABLET PO SCH (08:45)
[2016-05-07] MEDS: ALLOPURINOL 300 MG TABLET PO SCH (08:45)
[2016-05-07] MEDS: ACETAMINOPHEN 325 MG TABLET PO PRN ×2 (08:45→19:02)
[2016-05-07] MEDS: PROPRANOLOL ER 60 MG CAPSULE PO SCH (08:46)
[2016-05-07] MEDS: Hypromellose/Glycerin/PEG 400 Ophth Soln 15 ML DROPS EACH EYE SCH ×2 (08:46→21:11)
--- NOTE | 2016-05-07 11:11 | PT.PROG ---
Progress Note Progress Note: S. Patient agreed to do therapy in her room, she did not want to go to the therapy gym. O. Patient performed seated exercises in the form of; long arc quads, heel toe raises, marches, resisted knee flexion, clamshells, pillow squeezes, sit to stands all x 10 bilaterally. Patient ambulated 30 feet around her room then was left in bed with alarm and call light. A. Patient tolerated exercises well, she requires verbal cues to slow down and perform exercises properly. Patient would continue to benefit from skilled therapy at this time. P. Continue POC.
[2016-05-07 11:23] VITALS: RESP 20
[2016-05-07] MEDS ORDERED: Insulin Glargine SoloStar Inj 100 UNIT/ML INSULN.PEN SUBCUT SCH (11:31)
[2016-05-07] MEDS ORDERED: Diphenoxylate/Atropine 2.5/0.025 mg Tab PO PRN (13:11)
--- NOTE | 2016-05-07 14:58 | PDOC(PROG) ---
Date and Time of Service: 05/07/2015, 1455 Interval History: No chest pain. Shortness of breath and cough have significantly improved on her essentially back to baseline. Still requiring a little bit of oxygen but down to 1 L. She complains of diarrhea and a little stomach pain but she states that it's been getting better through the day. Objective : Data - Labs CBC and BMP: 05/07/16 05:50 05/07/16 05:50 Labs - Last 24 Hours: Laboratory Results 05/07/16 Range/Units 05:50 WBC 10.96 H (4.8-10.8) 10^3/uL RBC 3.59 L (4.20-5.40) 10^6/uL Hgb 12.0 (12.0-16.0) g/dL Hct 34.7 L (37.0-47.0) % MCV 96.7 (81-99) FL MCH 33.4 H (27-31) PG MCHC 34.6 (33-37) g/dL RDW Std Deviation 45.7 (39-50) fL RDW Coeff of Ryan 13.4 (11.5-14.5) % Plt Count 378 H (140-350) 10*3/uL MPV 9.9 (7.4-12.2) FL Neutrophils % (Manual) 56 (50-80) % Band Neutrophils % 1 (0-10) % Lymphocytes % (Manual) 38 (10-50) % Monocytes % (Manual) 4 (0-12) % Eosinophils % (Manual) 0 (0-8) % Basophils % (Manual) 1 (0-1) % Metamyelocytes % Not Reportable Myelocytes % Not Reportable Promyelocytes % Not Reportable Blast Cells Not Reportable WBC Morphology Comment Normal morphology (NORM) Plt Morphology Comment Normal morphology (NORM) RBC Morph Comment Normal morphology (NORM) Sodium 136 (135-145) meq/L Potassium 4.8 (3.8-5.2) meq/L Chloride 101 (98-112) meq/L Carbon Dioxide 23 (23-33) meq/L Anion Gap 12 (5-20) BUN 30 H (7-22) mg/dL Creatinine 0.8 (0.50-1.20) mg/dL Estimated GFR (>60 ml/min/1.73m(2)) BUN/Creatinine Ratio 37.50 H (6-20) Glucose 80 (78-110) mg/dL Mean Blood Glucose 272.974 mg/dL Hemoglobin A1c 10.78 H (4.2-6.0) % Calculated Osmolality 286.0 (267-292) mOsm/kg Calcium 9.5 (8.7-10.7) mg/dL Objective : Exam - General General Appearance: No Acute Distress, Cooperative Additional General Exam Details: Vital Signs - Last Taken Temperature 98.6 F 05/07/16 11:22 Pulse Rate 89 05/07/16 11:22 Respiratory Rate 20 05/07/16 11:22 Blood Pressure 109/44 05/07/16 11:22 Pulse Ox 94 05/07/16 11:22 - Head Head Exam: Normal Inspection, Normocephalic, Atraumatic - Eye Eye Exam: No Scleral Icterus - ENT ENT Exam: Mucous Membranes Moist - Respiratory Respiratory Exam: Clear to Auscultation - Bilaterally, Breathing Non Labored - Cardiovascular Cardiovascular Exam: RRR, No Murmur, No Clicks, No Gallops, No Rubs, No JVD - GI/Abdominal GI/Abdominal Exam: Normal Bowel Sounds, Non Tender, Non Distended, Soft - Extremities Extremities Exam: No Clubbing Present, No Edema Present, No Cyanosis Present - Neurological Neurological Exam: Alert, Oriented x 3, No Facial Droop, Speech Intact / Clear, Moves All Extremities Equally - Psychiatric Psychiatric Exam: Normal Affect, Normal Mood Assessment and Plan - Patient Problems (1) Community acquired pneumonia Current Visit: Yes Status: Acute (2) Diarrhea Current Visit: No Status: Acute Qualifiers: Diarrhea type: unspecified type Qualified Description: Diarrhea, unspecified type Qualifier Code(s): (R19.7) Diarrhea, unspecified (3) Restrictive lung disease Current Visit: Yes Status: Acute (4) Poorly controlled diabetes mellitus Current Visit: Yes Status: Acute (5) GERD (gastroesophageal reflux disease) Current Visit: Yes Status: Chronic Qualifiers: Esophagitis presence: without esophagitis Qualified Description: Gastroesophageal reflux disease without esophagitis Qualifier Code(s): ( K21.9) Gastro-esophageal reflux disease without esophagitis (6) Hypertension Current Visit: Yes Status: Chronic Qualifiers: Hypertension type: essential hypertension Qualified Description: Essential hypertension Qualifier Code(s): (I10) Essential (primary) hypertension (7) Hypothyroidism Current Visit: Yes Status: Chronic Qualifiers: Hypothyroidism type: unspecified Qualified Description: Hypothyroidism , unspecified type Qualifier Code(s): (E03.9) Hypothyroidism, unspecified - Assessment / Plan Additional Assessment/Plan Details: Today is day 3 of antibiotics. If the diarrhea clears up overnight, probable discharge back to [facility] tomorrow. Decrease Lantus at nighttime again as blood sugars are still in the 70s to 80s in the morning. I'd like to see him just a tad higher. Hemoglobin A1c is down by over 4 points the last few months which is outstanding in this patient. Test the stool for C. difficile if there is diarrhea that persists and treat if positive, if negative go ahead and start antidiarrheal medications. I discussed the above with the patient and she agreed. Note that I'm going to give her a liter of fluid given her diarrhea.
--- NOTE | 2016-05-07 16:13 | PT.PROG ---
Progress Note Progress Note: S: pt reports she isn't feeling the best today, reports she is having stomach pains. Pt willing to work with PT. O: nsg okay'd prior to PT. Pt is ind with use of bed rail for supine <> sit transfer. Pt instructed in seated LAQs x 1 min, seated marches x 20 reps, ankle pumps x 20 reps, seated bicep curls, seated shoulder flexion x 20 reps, pt instructed in dressing CGA x1. Pt instructed to ambulate around the [facility] station x 150 ft with CGA x 1 and standard walker. requires 3 standing rest breaks. O2 at 86% post ambulation. Pt returned to chair with chair alarm activated and call light within reach. A: pt tolerated therapy fair required multiple rest breaks. required max cues for participation in therapy. P: cont per POC
[2016-05-07] MEDS: Sodium Chloride 0.9% 1,000 ML PRIMARY IV SCH ×2 (16:37→22:19)
[2016-05-08] MEDS: LEVOTHYROXINE 125 MCG TABLET PO SCH (05:41)
[2016-05-08 06:02] VITALS: TEMP 97.8
[2016-05-08] MEDS: Insulin Glargine SoloStar Inj 100 UNIT/ML INSULN.PEN SUBCUT SCH (07:42)
[2016-05-08] MEDS: Insulin Lispro Flexpen 300 UNIT/3 ML INSULN.PEN SUBCUT SCH (07:48)
[2016-05-08] MEDS: CITALOPRAM 20 MG TABLET PO SCH (09:22)
[2016-05-08] MEDS: PROPRANOLOL ER 60 MG CAPSULE PO SCH (09:22)
[2016-05-08] MEDS: FOLIC ACID 1 MG TABLET PO SCH (09:22)
[2016-05-08] MEDS: LORazepam 1 MG TABLET PO SCH (09:22)
[2016-05-08] MEDS: ALLOPURINOL 300 MG TABLET PO SCH (09:22)
[2016-05-08] MEDS: LOSARTAN 50 MG TABLET PO SCH (09:22)
[2016-05-08] MEDS: Hypromellose/Glycerin/PEG 400 Ophth Soln 15 ML DROPS EACH EYE SCH (09:45)
--- NOTE | 2016-05-08 09:54 | DCSUMMARY ---
Hospitalization Summary Hospital Course: Final Discharge Diagnosis: Current Visit Problems Problem Status Priority Diagnosed Code Community acquired pneumonia Acute J18.9 Laryngitis Acute J04.0 Pneumonia Acute J18.9 Poorly controlled diabetes mellitus Acute E11.65 Restrictive lung disease Acute J98.4 GERD (gastroesophageal reflux disease) Chronic K21.9 Hypertension Chronic I10 Hypothyroidism Chronic E03.9 Diagnostic Data, Laboratory Data, and Procedures of Signifigance: Intake and Output (24hr x 4 totals) 05/06/16 05/07/16 05/08/16 05/09/16 05:59 05:59 05:59 05:59 Intake Total 1120 2295 1109 200 Output Total 4425 2500 200 Balance -3305 -205 909 200 Laboratory Results 05/05/16 05/06/16 05/07/16 Range/Units 02:36 05:38 05:50 WBC 11.34 H 11.92 H 10.96 H (4.8-10.8) 10^3/uL RBC 3.40 L 3.23 L 3.59 L (4.20-5.40) 10^6/uL Hgb 10.9 L 10.3 L 12.0 (12.0-16.0) g/dL Hct 33.1 L 30.8 L 34.7 L (37.0-47.0) % MCV 97.4 95.4 96.7 (81-99) FL MCH 32.1 H 31.9 H 33.4 H (27-31) PG MCHC 32.9 L 33.4 34.6 (33-37) g/dL RDW Std Deviation 46.6 44.4 45.7 (39-50) fL RDW Coeff of Ryan 13.6 13.3 13.4 (11.5-14.5) % Plt Count 396 H 391 H 378 H (140-350) 10*3/uL MPV 9.9 10.1 9.9 (7.4-12.2) FL Immature Gran % (Auto) 2.8 1.4 (0-5) % Neut % (Auto) 45.5 L 55.4 (50-80) % Lymph % (Auto) 36.4 29.3 (10-50) % Franklin % (Auto) 12.0 13.1 (5-15) % Eos % (Auto) 2.5 0.5 (0-8) % Baso % (Auto) 0.8 0.3 (0-1) % Immature Gran # (Auto) 0.32 0.17 10*3/UL Neut # (Auto) 5.16 6.60 10*3/UL Lymph # (Auto) 4.13 3.49 10*3/uL Franklin # (Auto) 1.36 H 1.56 H (0.3-0.8) 10*3/UL Eos # (Auto) 0.28 0.06 10*3/UL Baso # (Auto) 0.09 0.04 10*3/UL Neutrophils % (Manual) 56 (50-80) % Band Neutrophils % 1 (0-10) % Lymphocytes % (Manual) 38 (10-50) % Monocytes % (Manual) 4 (0-12) % Eosinophils % (Manual) 0 (0-8) % Basophils % (Manual) 1 (0-1) % Metamyelocytes % Not Reportable Myelocytes % Not Reportable Promyelocytes % Not Reportable Blast Cells Not Reportable WBC Morphology Comment Normal morphology Normal morphology Normal morphology (NORM) Plt Morphology Comment Normal morphology Normal morphology Normal morphology (NORM) RBC Morph Comment Normal morphology Normal morphology Normal morphology ( NORM) Sodium 134 L 136 136 (135-145) meq/L Potassium 4.5 3.8 4.8 (3.8-5.2) meq/L Chloride 99 101 101 (98-112) meq/L Carbon Dioxide 25 25 23 (23-33) meq/L Anion Gap 10 10 12 (5-20) BUN 29 H 26 H 30 H (7-22) mg/dL Creatinine 0.8 0.7 0.8 (0.50-1.20) mg/dL Estimated GFR (>60 ml/min/1.73m(2)) BUN/Creatinine Ratio 36.25 H 37.14 H 37.50 H (6-20) Glucose 120 H 64 L 80 (78-110) mg/dL Mean Blood Glucose 272.974 mg/dL Hemoglobin A1c 10.78 H (4.2-6.0) % Calculated Osmolality 284.0 284.0 286.0 (267-292) mOsm/kg Lactic Acid 1.1 (0.70-2.10) MMOL/L Calcium 9.1 9.4 9.5 (8.7-10.7) mg/dL Total Bilirubin 0.6 (0.3-1.2) mg/dL AST 24 (8-39) IU/L ALT 32 (9-52) IU/L Alkaline Phosphatase 90 (38-126) IU/L C-Reactive Protein 0.6 (0.0-0.9) mg/dL Total Protein 7.3 (6.1-8.0) g/dL Albumin 3.7 (3.5-4.8) g/dL Globulin 3.5 (2.50-4.10) g/dL Albumin/Globulin Ratio 1.00 L (1.3-2.0) mg/g History and Physical pertinent to Admission: Past Medical History Medical History: 1. Hyperlipidemia. 2. hypertension, she had a stress test and that's done in the past which was negative. 3. Restrictive lung disease but apparently not on any oxygen any longer. Was on 2 L of oxygen prior to going in to [facility]. 4. GERD. 5. hypothyroidism. 6. Arthritis. 7.gout. 8. history of compression fracture,. 9. chronic dizziness recurrent headaches, head CTs in the last 2 years revealed small vessel disease. 10. B12 deficiency. 11. Diabetes mellitus, insulin-dependent Surgical History: 1) Appendectomy. 2) bladder suspension x2. 3) bilateral cataract extraction. 4) colonoscopy. 5) EGD with dilation. 6) vaginal hysterectomy with bilateral salpingo-oophorectomy. 7) umbilical hernia repair. 8) exploratory laparotomy with lysis of adhesions x2 (1 when quite young). 9 ) D&C. 10) ovarian cyst excision for torsion. 11) lipoma excision recently. Pertinent Family History: Family history significant for diabetes both mother and father had diabetes Past Social History: Does not smoke or drink. Resides currently at [facility]. Tobacco Use: Never Smoker Substance Use Type: None Medication / Allergies Course of Hospitalization: This very nice 76-year-old female who resides at [facility] as well as some cold symptoms a week before admission subsequently developed a productive cough over 70 get worse about 2 days before admission is found to have a lingular infiltrate patient was placed on Rocephin and Zosyn initially and then transition to Levaquin every 48 hours she continued to improve and is not her baseline. She will continue therapy for a total 7 days every 48 hours of Levaquin 750. Her diabetes is well controlled and actually improved with drop in hemoglobin A1c which is very significant for this patient since she has come in for DKA times. In talking to the nurses or diarrhea is resolved she has had none last night and this morning she will be discharged in stable and improved condition back to the care center. Her Lantus was decreased to 40 units since her a.m. sugars a bit in the 70s and 80s down from 60 units On the date of discharge, the patient was examined: Gen.: No acute distress, alert, nontoxic Heart: Regular rate and rhythm, no murmurs, clicks, gallops, or rubs Lungs: Clear to auscultation bilaterally, breathing is nonlabored Abdomen/GI: Normal tones on auscultation, soft, nontender, nondistended Musculoskeletal/extremities: No clubbing, cyanosis, or edema Vitals reviewed and are listed below Assessment and Plan: 1. As per discharge assessments above 2. Disposition: [facility] 3. Condition on discharge, stable and improved. 4. Diet: regular diet 5. Activities: resume normal activities 6. Follow-Up: 1. PCP 2. 7. Medications at the Time of Discharge: Home Medications Medication Instructions Recorded Confirmed Type Blood Sugar Diagnostic [Freestyle 1 each IN QID #100 strip 10/06/13 05/05/16 Clinic Lite Strips] Cholecalciferol (Vitamin D3) 1 cap PO QD #90 cap 11/14/13 05/05/16 Clinic [Vitamin D3] Folic Acid 5 tab ORAL QD #150 tab 10/26/14 05/05/16 Clinic Lancets [Bd Ultra-Fine] 1 each QHS #100 each 04/30/15 05/05/16 Clinic Losartan Potassium 1 tab ORAL QD #90 tab 04/30/15 05/05/16 [facility] Happy, Insulin Disposable [Pen 1 each QD #100 unit 04/30/15 05/05/16 [facility] Happy] Propranolol HCl [Propranolol HCl 1 cap PO QD #30 cap 06/05/15 05/05/16 Clinic ER] Levothyroxine Sodium 1 tab PO DAILY #90 tab 08/14/15 05/05/16 [facility] Triamcinolone Acetonide 15 gm TP QID PRN #1 tube 08/27/15 05/05/16 Clinic Citalopram Hydrobromide [Celexa] 1 tab ORAL QD #30 tab 09/17/15 05/05/16 Clinic Lorazepam 1 mg PO BID #60 tab 11/28/15 05/05/16 Clinic Allopurinol 0.5 tab PO QD #45 tab 01/29/16 05/05/16 Clinic Insulin Glargine Inj [Lantus Inj] 60 unit SUBCUT QAM 03/28/16 05/05/16 History Tramadol HCl 1 tab PO Q6H PRN #60 tab 03/28/16 05/05/16 Clinic Lorazepam 1 tab PO QHS tab 04/08/16 05/05/16 History Polyethylene Glycol 400/Pva 1 drp OP BID drp 04/16/16 05/05/16 History [Hypotears Eye Drops] Insulin Lispro [Humalog] 100 unit SUBCUT AC each 04/28/16 05/05/16 History Insulin Glargine SoloStar Inj 40 unit SUBCUT BEDTIME insuln.pen 05/08/16 Rx [Lantus SoloStar Inj] Levofloxacin Tab [Levaquin Tab] 750 mg PO Q48H #4 tab 05/08/16 Rx 8. Time, care, counseling and coordination of care for this discharge is greater than 30 minutes. Exam - Vitals Vital Signs: Vital Signs Temperature 97.8 F Temperature Source Temporal Artery Scan Pulse Rate [Apical] 64 Pulse Rate [Pulse Oximeter] 90 Pulse Rate 73 Respiratory Rate 20 Blood Pressure [Right Arm] 157/75 Blood Pressure [Left Arm] 142/58 Blood Pressure 156/71 Pulse Ox 96 Oxygen Flow Rate 1 Oxygen Delivery Method Nasal Cannula Height 4 ft 10 in Weight 58.876 kg
--- NOTE | 2016-05-08 10:17 | PT.PROG ---
Progress Note Progress Note: S. Patient stated that she is feeling good today. O. Patient performed seated exercises in the form of; long arc quads, heel toe raises, marches, resisted knee flexion, clamshells, pillow squeezes, sit to stands all x 10 bilaterally with red band. A. Patient tolerated exercises well, she required short rest breaks to recover her breath. when she is medically stable she is able to return to the [facility]. P. Continue POC until discharge.
--- NOTE | 2016-05-08 10:59 | OT AM DAY ---
Diagnosis : Pneumonia/Weakness AM - Occupational Therapy S: The patient began the morning by refusing therapy. When we came back later she agreed to do some exercises in her room only. O: The patient was seen in her room. She completed therapeutic exercises with active range of motion in biceps flexion, shoulder flexion, shoulder abduction, and a rowing motion, all x20 to increase and maintain motion in her bilateral upper extremities. A: The patient would continue to benefit from therapy to increase her overall activity tolerance. She would benefit from getting out of her room to participate in more therapeutic activities in the gym. P: Continue seeing patient BID during the week and one time per day over the weekend for upper extremity strengthening, ADLs, and overall functional mobility. KELVIN
--- NOTE | 2016-05-08 11:17 | OT PM DAY ---
Diagnosis : Pneumonia/Weakness PM - Occupational Therapy S: The patient stated she was sorry that she was so rude earlier when we were in her room; she stated she did not feel good. She was in much better spirits this afternoon and agreed to participate in therapy in her room. O: The patient was seen in her room. While in an upright position in her chair she completed therapeutic exercises with red theraband in all ranges bilaterally x15 including shoulder flexion, shoulder extension, internal/ external rotation, triceps extension, biceps flexion, and rows. The patient was left in her chair with call light within reach and chair alarm on. A: The patient would continue to benefit from therapy to increase her overall activity tolerance and strength of lower and upper extremities to improve functional transfers. P: Continue seeing patient BID during the week and one time per day over the weekend for upper extremity strengthening, ADLs, and overall functional mobility. MTDD
--- NOTE | 2016-05-08 11:38 | OT.PROG ---
Progress Note Progress Note: S: pt states that she thinks she is going back to care center, and her stomach is feeling much better with less diarrhea. O: pt was seen in her room in the a.m. she completed transfers within her room with CGA approx 65-75 ft with CGA for safety. After short break pt completed UE exercises to increase strength to assist with postural transitions. She completed them with RTB in all planes x15, both with BUE's. Pt also completed x10 sit to stands Ind. pt was left in chair with alarm on and call light within reach. A: pt participate well and appears to be feeling much better. Transfers well and completes postural transition well. Continue to progress with activity tolerance and strengthening. P: continue per plan of care as long as in-pt.
== END 2016-05-08 11:52 | DRG 195 ==
LOC: ER 01:54 → MED/SURG 04:01
PROVIDERS: ADMIT Internal Medicine; ATTEND Internal Medicine
DX: J18.9 Pneumonia, unspecified organism (principal); J18.8 Other pneumonia, unspecified organism; R05 Cough; J04.0 Acute laryngitis; E11.65 Type 2 diabetes mellitus with hyperglycemia; J98.4 Other disorders of lung; K21.9 Gastro-esophageal reflux disease without esophagitis; I10 Essential (primary) hypertension; E03.9 Hypothyroidism, unspecified; R19.7 Diarrhea, unspecified
CPT/HCPCS: 36415; 70490; 71020; 80053; 83605; 85025; 86140; 87040; 87804; 96365; 96375; 99285 ×2; J2543; 80048; 82948; 83036; 85007; 87449; 87493; 87798; 94761; 97110; 97530; J1100; J2405; J7030; J7050